=== PATIENT | male | born 1955 | race Caucasian/White ===

== ENCOUNTER 2019-03-19 11:20 | Emergency (ER) | payer OTHER ==
[~2019-03-19] VITALS: Ht 185.4 cm; Wt 150.0 kg
[~2019-03-19 11:20] MED LIST: DILTIAZEM30 MG PO; FOLIC ACID1 M1 PO; GABAPENTIN100 MG PO; LASIX 40 MG TAB40 MG PO; LIBRIUM25 M1 PO; LISINOPRIL2.5 MG PO; METOPROLOL5 MG/5 ML PO; TAB-A-VITE W/1 COMBO PO; THIAMINE HCL100 MG PO; XARELTO20 MG PO
[2019-03-19] MEDS ORDERED: CEPHALEXIN500 M1 PO (11:47)
[2019-03-19] MEDS ORDERED: ISOSORB MONO30 MG PO (11:59)
[2019-03-19 13:30] VITALS: BP 115/83
== END 2019-03-19 13:30 | disposition home or self-care (01) | DRG 605 ==
LOC: ED 11:20
PROC: 0HQKXZZ Repair Right Lower Leg Skin, External Approach (ICD-10-PCS; principal; 2019-03-19)
DX: S81.811A Laceration without foreign body, right lower leg, initial encounter (principal); I11.0 Hypertensive heart disease with heart failure; I50.9 Heart failure, unspecified; I73.9 Peripheral vascular disease, unspecified; G62.9 Polyneuropathy, unspecified; W13.3XXA Fall through floor, initial encounter; Y92.009 Unspecified place in unspecified non-institutional (private) residence as the place of occurrence of the external cause; Z86.73 Personal history of transient ischemic attack (TIA), and cerebral infarction without residual deficits

== ENCOUNTER 2020-01-27 06:42 | Inpatient (IN) | payer OTHER ==
[~2020-01-27] VITALS: Ht 185.4 cm; Wt 118.8 kg
[2020-01-27] VITALS (10 sets, daily range): BP systolic 105–148; BP diastolic 60–91
[~2020-01-27 06:42] MED LIST changes: +CEPHALEXIN500 M1 PO; +ISOSORB MONO30 MG PO
--- NOTE | 2020-01-27 07:00 | NUR ---
RECIEVED CARE OF PATIENT. PT ASSESSED. PT AO X 3. SKIN PINK WARM AND DRY. REPORTS FELT SHORT OF BREATH THIS MORNING. DENIES CHEST PAIN. MEDICATED FOR RAPID HEART RATE AND NAUSEA BY EMS. CHANGED TO GOWN. MONITORS APPLIED
[2020-01-27 07:17] LABS: HEMATOCRIT 37.8 % (39.0-50.0); HEMOGLOBIN 12.5 g/dl (14.0-18.0); IMMATURE GRANULOCYTES 0.6 % (0.0-5.0); MEAN CELL VOLUME 96.7 fL CALC (80.0-100.0); MEAN CORPUSCULAR HGB CONC 33.1 g/dL CAL (32.0-36.0); NEUT# 8.69 thou/uL (1.82-7.42); RED BLOOD COUNT 3.91 mill/uL (4.70-6.10); RED CELL DISTRI WIDTH 13.3 % (11.5-15.5)
--- NOTE | 2020-01-27 07:33 | NUR ---
CARDIZEM DRIP STARTED
[2020-01-27] MEDS ORDERED: METOPROLOL SUC200 MG PO (07:51)
--- NOTE | 2020-01-27 07:56 | NUR ---
PT GIVEN ICE CHIPS AND TISSUE. RESTING ON STRETCHER. NO COMPLAINTS AT THIS TIME
--- NOTE | 2020-01-27 08:04 | NUR ---
CARDIZEM INCREASED TO 15MG/HR FOR HR 121
[2020-01-27 08:14] LABS: ACT PARTIAL THROMBO TIME 24.6 SECONDS (20.0-32.5); INTERNATIONAL NORMALIZED RATIO 1.1 RATIO (0.7-1.3); PROTHROMBIN TIME 11.5 SECONDS (9.0-12.5)
[2020-01-27 08:39] LABS: TSH, 3RD GENERATION 1.03 uIU/mL (0.47 - 4.68)
[2020-01-27 08:48] LABS: ALBUMIN 4.7 g/dL (3.2-5.0); ALKALINE PHOSPHATASE 77 u/l (38-126); BUN 14 mg/dL (8-23); BUN/CREATININE RATIO 16 (12-20 (CALC)); CHLORIDE 103 mmol/l (95-108); CREATININE 0.9 mg/dL (0.7-1.3); GFR > 60 ML/MIN (>=60 (CALC)); GFR FOR AFR.AMER. > 60 ML/MIN (>=60 (CALC)); POTASSIUM 4.2 mmol/l (3.5-5.1); SGOT/AST 56 u/l (19-48); SODIUM 143 mmol/l (137-146); TOTAL PROTEIN 7.6 g/dL (6.3-8.2)
[2020-01-27 08:49] LABS: ANION GAP 25 (6-22 (CALC)); BILIRUBIN, TOTAL 1.1 mg/dL (0.0-1.4); CARBON DIOXIDE 19 mmol/l (22-30)
[2020-01-27 09:00] LABS: MYOGLOBIN 114 ng/mL (0 - 121)
--- NOTE | 2020-01-27 09:23 | NUR ---
SWAB AND BLOOD SPECIMEN COLLECTED
--- NOTE | 2020-01-27 10:11 | NUR ---
ICU UNABLE TO TAKE REPORT AT THIS TIME
--- NOTE | 2020-01-27 10:45 | NUR ---
ICU UNABLE TO TAKE REPORT AT THIS TIME
--- NOTE | 2020-01-27 11:29 | NUR ---
REPORT CALLED TO ICU. LEONID ARIZA
--- NOTE | 2020-01-27 11:46 | NUR ---
PT ADMITTED TO ICU BED 3 FROM ED, PT TRANSPORT VIA STRETCHER WITH IV, PT TRANSFERRED SELF FROM STRETCHER TO BED, SLOW SHAKY GAIT NOTED. PT HAS SHAKY GAIT, WITH TREMORS NOTED AT REST. PT STATES THIS IS NORMAL FOR HIM. PT A&0X3, ABLE TO MAKE NEEDS KNOWN, LOSES THOUGHTS AT TIMES OF SPEAKING. PT STATES CHEST PRESSURE 3/10, NO PAIN AND STATES IT IS ALOT BETTER THEN ON ARRIVAL. AFIB ON TELEMETRY, HR 102. RESPIRATIONS EVEN/UNLABORED, SA02@ 98%RA. LS CLEAR/DIMINISHED. ABDOMEN DISTENDED/HARD, LBM 01/26/20. BLE MID CALF TO FEET DISCOLORED, PT STATES NEUROPATHY, NO HX OF DIABETES. AFEBRILE. PT WITH 18G TO RAC, CARDIZEM AT 15MG/HR, NO S/S OF INFILTRATION OR INFECTION NOTED AT SITE. PT ORIENTED TO UNIT, RM AND CALL LIGHT. CALL LIGHT IN REACH. WILL MONITOR.
--- NOTE | 2020-01-27 11:50 | NUR ---
PT TRANSPORTED VIA STRETCHER. MONITOR IN PLACE TO ICU
--- NOTE | 2020-01-27 12:00 | NUR ---
DIETARY ON UNIT, TRAY SET UP.
--- NOTE | 2020-01-27 13:00 | NUR ---
PT ASSITED TO BSC.
--- NOTE | 2020-01-27 14:00 | NUR ---
LABS DRAWN AT BEDSIDE. PT TOLERATED WELL.
--- NOTE | 2020-01-27 14:30 | NUR ---
PATRICIA TALAMANTES AT [facility] FOR ASSESSMENT AND TO DISCUSS PLAN OF CARE. NEW ORDERS RECIEVED.
--- NOTE | 2020-01-27 15:03 | NUR ---
PT REPORTED TO DRINKING 1 L OF VODKA DAILY, ETOH 213 FROM 7AM. ETOH PROTOCOL INITIATED. PT RESTING IN BED CALL LIGHT IN REACH. AIRBORNE ISOL INTACT.
--- NOTE | 2020-01-27 15:30 | NUR ---
PT ASSISTED TO BSC, UNABLE TO URINATE AT THIS TIME. BLADDER SCAN SHOWS 909ML POST VOID. DR. KIRKLAND NOTIFIED, BROCK PLACEMENT ORDERED FOR RETENTION. BROCK PLACED USING STERILE TECHNIQUE, 10ML BALLOON INFLATED WITH 1000ML TEA COLORED URINE IMMEDIATLY RETURNED.
--- NOTE | 2020-01-27 16:30 | NUR ---
PT RESTING IN BED, WATCHING TV. TREMORS AT REST CONTINUE. PT OFFERS NO COMPLAINTS AT THIS TIME. DENIES VISUAL OR AUDIO HALLUCINATIONS NOT SEIZURE ACTIVITY NOTED. CALL LIGHT IN REACH. WILL MONITOR.
[2020-01-27 17:25] LABS: URINE BILIRUBIN - DIPSTICK NEGATIVE (NEGATIVE); URINE BLOOD DIPSTICK NEGATIVE (NEGATIVE); URINE CLARITY CLEAR; URINE COLOR YELLOW; URINE GLUCOSE - DIPSTICK NEGATIVE (NEGATIVE); URINE KETONE 15 mg/dL (NEGATIVE); URINE LEUK ESTERASE NEGATIVE (Negative); URINE NITRITE - DIPSTICK NEGATIVE (Negative); URINE PH 5.5 (4.5-8.0); URINE PROTEIN - DIPSTICK 30 mg/dL (NEG-TRACE); URINE SPECIFIC GRAVITY >=1.030; URINE UROBILINOGEN - DIPSTICK 0.2 E.U./dL (0.2)
--- NOTE | 2020-01-27 17:30 | NUR ---
PT ASSISTED TO BSC, THEN BACK TO BED. SHAKY GAIT.
[2020-01-27 17:49] LABS: URINE AMORPH SEDIMENT FEW hpf (NONE-FER); URINE RBC 0-2 RBC/hpf (0-5); URINE WBC 0-2 WBC/hpf (0-5)
--- NOTE | 2020-01-27 18:32 | NUR ---
PT RESTING IN BED, EYES CLOSED. BROCK REMAINS PATENT, DRAINING TO BSD VIA GRAVITY. CALL LIGHT IN REACH.
--- NOTE | 2020-01-27 18:51 | NUR ---
ASSISTED TO BSC, SCANT BM , THEN BACK TO BED. CALL LIGHT IN REACH. WILL MONITOR.
--- NOTE | 2020-01-27 20:00 | NUR ---
ASLEEP ON ROUNDS. RESP EVEN AND UNLABORED. AFIB ON MONITOR, HR 80'S. ASSESSMENT DEFERRED.
--- NOTE | 2020-01-27 20:45 | NUR ---
PATIENT RESTING IN BED, WATCHING TV. DENIES ANY PAIN OR DISCOMFORTS. RESP NON-LABORED. LUNGS CLEAR, DIMINISHED IN BILATERAL BASES. 1+ EDEMA OF BLE WITH PIGMENTATION CHANGES NOTED AND DRY, SCALY SKIN. PERIPHERAL PULSES WEAKLY PALPABLE. IV IN LAC WITH BANANA BAG INFUSING AT 100 ML/HR. CONTINUES AFIB ON MONITOR. TREMORS NOTED OF BOTH HANDS/ARMS. DISCUSSED PLAN OF CARE. PATIENT VERBALIZES UNDERSTANDING. DENIES NEEDS AT THIS TIME. CALL ZALDIVAR IN REACH. REINFORCED USE OF CALL ZALDIVAR FOR ANY ASSISTANCE.
--- NOTE | 2020-01-27 22:00 | NUR ---
RESTING WITH EYES CLOSED. RESP NON-LABORED. AFIB.
[2020-01-28] VITALS (13 sets, daily range): BP systolic 120–158; BP diastolic 80–93
--- NOTE | 2020-01-28 00:07 | NUR ---
SLEEPING ON ROUNDS. RESP NON-LABORED. AFIB ON MONITOR.
--- NOTE | 2020-01-28 01:00 | NUR ---
UP TO BSC WITH ASSIST, HAD LARGE LIQUID BROWN STOOL.
--- NOTE | 2020-01-28 01:10 | NUR ---
PATIENT STATES FEELS ANXIOUS. INCREASE IN TREMORS NOTED. ATIVAN 2 MG SLOW IVP GIVEN ORDERED FOR WITHDRAWAL SYMPTOMS.
--- NOTE | 2020-01-28 02:15 | NUR ---
ZURI FOR SHORT INTERVALS. PATIENT HAS BEEN COOPERATIVE. NO CHANGES TO REPORY.
--- NOTE | 2020-01-28 04:50 | NUR ---
BLOOD DRAWN FOR AM LABS ORDERED.
[2020-01-28 05:44] LABS: ALKALINE PHOSPHATASE 69 u/l (38-126); BUN 13 mg/dL (8-23); BUN/CREATININE RATIO 18 (12-20 (CALC)); CHLORIDE 102 mmol/l (95-108); CREATININE 0.7 mg/dL (0.7-1.3); GFR > 60 ML/MIN (>=60 (CALC)); GFR FOR AFR.AMER. > 60 ML/MIN (>=60 (CALC)); SGOT/AST 46 u/l (19-48); SODIUM 136 mmol/l (137-146); TOTAL PROTEIN 6.8 g/dL (6.3-8.2)
[2020-01-28 05:51] LABS: CHOLESTEROL HDL RATIO 2.9 (<4.4 (CALC)); MAGNESIUM 1.4 mg/dL (1.6-2.3)
[2020-01-28 05:55] LABS: ANION GAP 14 (6-22 (CALC)); CARBON DIOXIDE 24 mmol/l (22-30)
--- NOTE | 2020-01-28 06:45 | NUR ---
RECIEVED REPORT FROM ANNITA DOWNS. ASSUMED PT CARE.
--- NOTE | 2020-01-28 07:15 | NUR ---
PT RESTING IN BED, A&0X3, ABLE TO MAKLE NEEDS KNOWN, SOME CONFUSION PROCESSING THOUGHT TO VERBALIZE. PT WITH SEVERE TREMORS NOTED AT REST AND INCREASED WITH CONCENTRATED MOVEMENTS. PT DENIES VISUAL OR AUDITORY HALLUCINATIONS, NO SEIZURE ACTIVITY. BROCK REMAIN PATENT, DRAINING TO BSC VIA GRAVITY, DARK TAVARES URINE NOTED. 18G TO LAC INTACT, FLUSHED WITHOUT DIFFICULTY. AIR ISOLATION MAINTAINED. CALL LIGHT IN REACH. WILL MONITOR.
--- NOTE | 2020-01-28 08:00 | NUR ---
PT ASSISTED TO BSC, SMALL LIQUID STOOL
--- NOTE | 2020-01-28 09:00 | NUR ---
PT ASSISTED WITH REMAINDER OF MEAL, SEVERE TREMORS CONTINUED. PT THEN ASSISTED TO BSC, SMALL LIQUID STOOL. GOOD PERICARE, LINEN CHANGE COMPLETED. CALL LIGHT IN REACH. WILL MONITOR.
--- NOTE | 2020-01-28 09:53 | NUR ---
DR. KIRKLAND AT BEDSIDE FOR ASSESSMENT AND TO DISCUSS PLAN OF CARE. NEW ORDERS RECIEVED. CALL LIGHT IN REACH. WILL MONITOR.
--- NOTE | 2020-01-28 11:56 | NUR ---
PT SITTING UP IN BED, EATING LUNCH. TREMORS REMAIN, NO S/S OF AUDIO/VISUAL HALLUCINATIONS NOTED. NO S/S OF SEIZURE ACTIVITY.
--- NOTE | 2020-01-28 14:00 | NUR ---
PT RESTING IN BED WITH EYES CLOSED. NO S/S OF DISTRESS AT THIS TIME. CALL LIGHT IN REACH.
--- NOTE | 2020-01-28 15:53 | NUR ---
PT RESTING IN BED, WATCHING TV. OFFERS NO COMPLAINTS AT THIS TIME. CALL LIGHT IN REACH.
--- NOTE | 2020-01-28 18:00 | NUR ---
PT CALLED, STATED PT WAS NOT GOING TO BE ABLE TO RETURN TO HOME. SHE WAS VERY DISTRESS ABOUT PT MEDICAL CONDITION AND CURRENT UNABILITY TO REMAIN SOBER. STATED PT HAS BEEN HAVING INCRESINGLY HARD TIME WITH [employer] AND IS SUPPOSED TO BE GETTING AN APPT AT [place] TO DO A WORK UP FOR [employer] BUT HAS BEEN UNABLE TO GET APPT SCHEDULED. REFERRED PT TO CM.
--- NOTE | 2020-01-28 19:50 | NUR ---
PATIENT AWAKE ON ROUNDS. RESTING IN BED WATCHING TV. DENIES PAIN OR DISCOMFORTS. RESP NON-LABORED. LUNGS CLEAR THROUGHOUT. RA O2 SAT 98% SHIFT ASSESSMENT COMPLETED. LAC SALINE LOCK INTACT, SIT EBENIGN. HONEY BLENDER SHOWS AFIB. DISCUSSED PLAN OF CARE, PATIENT VERBALIZES UNDERSTANDING. DENIES NEEDS AT THIS TIME. CALL ZALDIVAR IN REACH.
--- NOTE | 2020-01-28 22:00 | NUR ---
WATCHING TV. NO COMPLAINTS VOICED. VSS.
[2020-01-29] VITALS (18 sets, daily range): BP systolic 118–160; BP diastolic 75–113
--- NOTE | 2020-01-29 00:03 | NUR ---
RESTING WITH EYES CLOSED. RESP NON-LABORED. VSS. AFIB ON MONITOR, HR 70'S.
--- NOTE | 2020-01-29 01:30 | NUR ---
MEDICATED WITH LIBRIUM 25 MG PO ORDERED FOR TREMORS, C/O BEING ANXIOUS.
--- NOTE | 2020-01-29 04:00 | NUR ---
PATIENT HAS SLEPT ON AND OFF. CALM AND COOPERATIVE WHEN AWAKE. VSS. AFIB ON MONITOR.
[2020-01-29 05:12] LABS: ANION GAP 8 (6-22 (CALC)); BUN 12 mg/dL (8-23); BUN/CREATININE RATIO 16 (12-20 (CALC)); CHLORIDE 98 mmol/l (95-108); CREATININE 0.7 mg/dL (0.7-1.3); GFR > 60 ML/MIN (>=60 (CALC)); GFR FOR AFR.AMER. > 60 ML/MIN (>=60 (CALC)); MAGNESIUM 1.7 mg/dL (1.6-2.3); POTASSIUM 3.4 mmol/l (3.5-5.1); SODIUM 134 mmol/l (137-146)
[2020-01-29 05:16] LABS: CARBON DIOXIDE 31 mmol/l (22-30)
--- NOTE | 2020-01-29 06:07 | NUR ---
PATIENT RESTING WITH EYES CLOSED. RESP NON-LABORED. NO SEIZURE ACTIVITY OR HALLUCINATIONS DURING THE NIGHT. TREMORS PERSIST.
--- NOTE | 2020-01-29 07:15 | NUR ---
REPORT RECEIVED FROM OUTGOING NURSE, VSS. WILL CONTINUE TO MONITOR.
--- NOTE | 2020-01-29 08:00 | NUR ---
PT RESTING IN BED, ALL VSS AT THIS TIME. WILL CONTINUE TO MONITOR.
--- NOTE | 2020-01-29 10:00 | NUR ---
PT IN BED RESTING WITH EYES CLOSED, ALL VSS AT THIS TIME.
--- NOTE | 2020-01-29 12:00 | NUR ---
PT RESTING IN BED AT THIS TIME, NO CHANGE IN VS. PT BATHED AND LINENS CHANGED.
--- NOTE | 2020-01-29 14:00 | NUR ---
PT VSS, CASE MANAGEMENT IN TO SEE PT REGARDING LIVING SITUATION.
--- NOTE | 2020-01-29 14:00 | NUR ---
PT RESTING IN BED, ALL VSS.
--- NOTE | 2020-01-29 16:00 | NUR ---
PHYSICAL THEREAPY IN TO EVALUATE PT AT THIS TIME.
--- NOTE | 2020-01-29 18:00 | NUR ---
PT EATING DINNER IN BED, ALL VSS AT THIS TIME.
--- NOTE | 2020-01-29 19:00 | NUR ---
REPORT FROM ANNITA WASHBURN. ASSUMED PT. CARE.
--- NOTE | 2020-01-29 19:30 | NUR ---
PT. FOUND SITTING UP IN BED WATCHING TELEVISION. SKIN WARM AND DRY. AFEBRILE. RESPS EVEN AND UNLABORED. ORIENTED X 3. NEWTON. PT. WITH NOTED TREMOR AND PILL-ROLLING MOTION TO LT. HAND. REPORT MILD CHEST PRESSURE THAT HE REPORTS HAVING HAD FOR QUITE SOME TIME. BOWEL SOUNDS ACTIVE. AKUA. IRREGULAR RATE AND RHYTHM , A-FIB, RATE CONTROLLED. VSS. CALL LIGHT WITHIN REACH. RADIAL PUSLES INTACT. 1+ LOWER EXT EDEMA, PEDAL PULSES WEAK. CALL LIGHT WITHIN REACH. WILL CONTINUE TO CLOSELY MONITOR.
--- NOTE | 2020-01-29 20:12 | NUR ---
PT. ASSISTED WITH LOG-IN ON HOSPITAL WIFI. DENIES OTHER COMPLAINTS OR NEEDS AT THIS TIME. REMAINS STABLE, TREMULOUS.
--- NOTE | 2020-01-29 22:15 | NUR ---
PT. RESTING IN BED IN NO DISTRESS. PT. MEDICATED ORDERED. WILL CONTINUE TO CLOSELY MONITOR FOR SIGNS OF WITHDRAWL AND NEED FOR MEDICATION ADMINISTRATION. CALL LIGHT REMAINS WITHIN REACH.
[2020-01-30] VITALS (9 sets, daily range): BP systolic 107–154; BP diastolic 64–102
--- NOTE | 2020-01-30 00:08 | NUR ---
PT. RESTING IN BED WITH EYES CLOSED IN NO DISTRESS. INTERMITTENT SNORING RESPIRATIONS NOTED. BP/HR STABLE. A-FIB REMIANS RATE CONTROLLED. AFEBRILE. PT. VOICES NO COMPLAINTS OR NEEDS. CALL LIGHT REMAINS WITHIN REACH.
--- NOTE | 2020-01-30 02:05 | NUR ---
BP/HR REMAINS STABLE. CALL LIGHT REMAINS WITHIN REACH. CONTINUES WIHT INTERMITTENT SNORING RESPIRATIONS. NO DISTRESS NOTED. WILL CONTINUE TO MONITOR.
--- NOTE | 2020-01-30 04:02 | NUR ---
PT. REMAINS AFEBRILE. AWAKE, ALERT, ORIENTED X 3. WATCHING TELEVISION IN NO DISTRESS. RESPS REMAIN EVEN AND UNLABORED. RHYTHM REMAINS RATE CONTROLLED A-FIB. CALL LIGHT WITHIN REACH.
--- NOTE | 2020-01-30 05:02 | NUR ---
PT. MEDICATED PER PHYSICIAN ORDERS. BROCK EMPTIED OF APPROX 1100 CC CLEAR YELLOW URINE. LIGHTS DIMMED FOR COMFORT. PT. DENIES OTHER COMPLAINTS OR NEEDS
--- NOTE | 2020-01-30 06:10 | NUR ---
IV ZOSYN INFUSING ORDERED. NO REACTIONS NOTED. PT. RESTING ON RT. SIDE WITH EYES CLOSED AND IN NO DISTRESS. WILL CONTINUE TO MONITOR.
--- NOTE | 2020-01-30 07:30 | NUR ---
REPORT RECEIVED FROM OUTGOING NURSE, PT RESTING IN BED. ALL VSS, WILL CONTINUE TO MONITOR.
--- NOTE | 2020-01-30 08:00 | NUR ---
PT RESTING IN BED, ALERT AND ORIENTEDX3. DENIES PAIN AT THIS TIME, CONTROLLED AFIB ON THE MONITOR. BP ELEVATED, WITHIN PTS RANGE HISTORY. TEMP NORMAL, PUPILS EQUAL ROUND AND REACTIVE. ANSWERS ALL QUESTIONS APPROPRIATELY. PT AGREES TO REHAB, WAITING ON CASE MANAGEMENT FOR PLACEMENT.
--- NOTE | 2020-01-30 09:00 | NUR ---
PT AMBULATED TO BATHROOM FO BM. PT HAD MODERATE BM. PT AMBULATED BACK TO BED. PT NOTED TO HAVE STEADY GAIT WITH WALKER.
--- NOTE | 2020-01-30 11:30 | NUR ---
PT IN TO SEE PT AT THIS TIME.
--- NOTE | 2020-01-30 12:00 | NUR ---
PT note Patient is seen for gait and transfer training. He requires minimal VC to stand and understands slow positoin change. He was able to ambulate 60 feet with min mod assist of 1 and vitals stable hollie FWW. He is limited by dyspnea. He is encouraged to stand at least 6 x daily. he expressed fear that his legs would swell but I told him to lmit standing time but make sure he relieved pressure off the buttocks and continued to wortk on his function. His Am pac score is 14 and he is a good candidate for home health
--- NOTE | 2020-01-30 14:00 | NUR ---
PT RESTING IN BED WATCHING TV, DENIES PAIN OR DISCOMFORT. DENIES ANXIETY, ALERT AND ORIENTED, ALL VSS. WILL CONTINUE TO MONITOR.
--- NOTE | 2020-01-30 15:50 | NUR ---
PT RESTING IN BED ALL VSS AT THIS TIME TRANSFER ORDERS RECEIVED FROM DR KIRKLAND.
--- NOTE | 2020-01-30 17:00 | NUR ---
PT REPORT CALLED TO [facility] PAYABLE ASSISTANT FLOOR. ALERT AND ORIENTEDX3, ALL VSS. TRANSFERED VIA BED WITH RN.
--- NOTE | 2020-01-30 17:10 | NUR ---
[facility]
--- NOTE | 2020-01-30 19:00 | NUR ---
REPORT RECEIVED FROM ANNITA RAY. PT RESTING IN BED, NO S/S OF DISTRESS AT THIS TIME. SAFETY PRECAUTIONS IN PLACE. WILL CONTINUE TO MONITOR.
--- NOTE | 2020-01-30 20:25 | NUR ---
PT RESTING IN BED, ALERT AND ORIENTED. RESPIRATIONS EVEN AND UNLABORED, LUNGS SOUND DIMINISHED. PEDAL PULSES WEAK. PT DENIES ANY PAIN AT THIS TIME. PT HAVING TREMORS AND FEELING ANIXOUS. PT TO BE MEDICATED PER EMAR ORDERS. SAFETY PRECAUTIONS IN PLACE. WILL CONTINUE TO MONITOR.
--- NOTE | 2020-01-30 21:52 | NUR ---
REPORT RECEIVED FROM ANNITA RAY. PT RESTING IN BED, NO S/S OF DISTRESS AT THIS TIME. SAFETY PRECAUTIONS IN PLACE. WILL CONTINUE TO MONITOR.
[2020-01-31 00:12] VITALS: BP 131/84
--- NOTE | 2020-01-31 00:12 | NUR ---
PT RESTING IN BED. NO S/S OF DISTRESS AT THIS TIME. TELE IN PLACE. SAFETY PRECAUTIONS IN PLACE. WILL CONTINEU TO MONITOR.
[2020-01-31 04:15] VITALS: BP 130/73
--- NOTE | 2020-01-31 04:26 | NUR ---
PT RESTING IN BED. NO S/S OF DISTRESS AT THIS TIME. SAFETY PRECAUTIONS IN PLACE. WILL CONTINEU TO MONITOR.
[2020-01-31 05:19] LABS: HEMATOCRIT 39.7 % (39.0-50.0); HEMOGLOBIN 13.1 g/dl (14.0-18.0); MEAN CELL VOLUME 97.5 fL CALC (80.0-100.0); MEAN CORPUSCULAR HGB 32.2 pG CALC (26.0-32.0); RED BLOOD COUNT 4.07 mill/uL (4.70-6.10); RED CELL DISTRI WIDTH 12.7 % (11.5-15.5)
[2020-01-31 05:26] LABS: ALBUMIN 3.8 g/dL (3.2-5.0); ALKALINE PHOSPHATASE 63 u/l (38-126); ANION GAP 12 (6-22 (CALC)); BUN 14 mg/dL (8-23); BUN/CREATININE RATIO 17 (12-20 (CALC)); CARBON DIOXIDE 30 mmol/l (22-30); CHLORIDE 97 mmol/l (95-108); CREATININE 0.8 mg/dL (0.7-1.3); GFR > 60 ML/MIN (>=60 (CALC)); GFR FOR AFR.AMER. > 60 ML/MIN (>=60 (CALC)); POTASSIUM 3.7 mmol/l (3.5-5.1); SGOT/AST 27 u/l (19-48); SODIUM 136 mmol/l (137-146); TOTAL PROTEIN 6.6 g/dL (6.3-8.2)
[2020-01-31 05:48] LABS: BILIRUBIN, TOTAL 0.7 mg/dL (0.0-1.4)
[2020-01-31 07:11] VITALS: BP 116/82
--- NOTE | 2020-01-31 07:11 | NUR ---
PT RESTING IN BED, NO SIGNS OF DISTRESS NOTED, RESP EVEN AND UNLABORED. PT ALERT AND ORIENTED X3. DISCUSSED POC, VITALS OBTAINED, ASSESSMENT COMPLETED. CALL LIGHT IN REACH,CONTINUE TO MONITOR.
--- NOTE | 2020-01-31 08:34 | NUR ---
PT AMBULATED TO SHOWER WITH STEADY GAIT USING WALKER, HIGHWAY TRAFFIC CONTROL TECHNICIAN AND SEWING MACHINES SALESPERSON AT BEDSIDE, INSTUCTED PT TO TO PULL CORD FOR ASSISTANCE. CONTINUE TO MONITOR.
--- NOTE | 2020-01-31 10:27 | NUR ---
PT RESTING IN BED WATCHING TV,NO SIGNS OF DISTRESS NOTED, RESP EVEN AND UNLABORED. CALL LIGHT IN REACH,CONTINUE TO MONITOR.
--- NOTE | 2020-01-31 14:41 | NUR ---
PT MEDICATED PER MAR, NO SIGNS OF DISTRESS NOTED, RESP EVEN AND UNLABORED. CALL LIGHT IN REACH,CONTINUE TO MONITOR.
[2020-01-31 15:00] VITALS: BP 103/78
--- NOTE | 2020-01-31 19:00 | NUR ---
REPORT RECEIVED FROM MOE KEBEDE. PT RESTING IN BED. NO S/S OF DISTRESS AT THIS TIME. SAFETY PRECAUTIONS IN PLACE. WILL CONTINUE TO MONITOR.
[2020-01-31 19:31] VITALS: BP 122/83
--- NOTE | 2020-01-31 20:40 | NUR ---
PT RESTING IN BED ALERT AND ORIENTED. RESPIRATIONS EVEN AND UNLABORED ON RA. LUNGS SOUND CLEAR. PEDAL PULSES WEAK. PT DENIES ANY PAIN OR DISCOMFORT AT THIS TIME. TELE IN PLACE. CALL ZALDIVAR WITHIN REACH. WILL CONTINUE TO MONITOR.
--- NOTE | 2020-01-31 23:36 | NUR ---
PT RESTING IN BED. ALERT AND ORIENTED. NO S/S OF DISTRESS AT THIS TIME. SAFETY PRECAUTIONS IN PLACE. WILL CONTINUE TO MONITOR.
[2020-02-01 00:09] VITALS: BP 121/80
--- NOTE | 2020-02-01 04:14 | NUR ---
PT RESTING IN BED, NO S/S OF DISTRESS AT THIS TIME. SAFETY PRECAUTIONS IN PLACE. WILL CONTINUE TO MONITOR.
[2020-02-01 04:18] VITALS: BP 116/82
[2020-02-01 07:57] VITALS: BP 108/82
--- NOTE | 2020-02-01 07:57 | NUR ---
PT SITTING IN BED EATING BREAKFAST, PT MORE PLEASANT THIS AM, JOKING WITH INSULATION WORKER APPRENTICE. DISCUSSED POC, NO SIGNS OF DISTRESS NOTED, RESP EVEN AND UNLABORED. ASSESSMENT COMPLETED, IV PATENT, VITALS OBTAINED, CALL LIGHT IN REACH,CONTINUE TO MONITOR.
[2020-02-01 10:55] VITALS: BP 106/79
--- NOTE | 2020-02-01 12:00 | NUR ---
PT SITTING IN BED EATING LUNCH, NO SIGNS OF DISTRESS NOTED, RESP EVEN AND UNLABORED. CALL LIGHT IN REACH,CONTINUE TO MONITOR.
[2020-02-01 15:21] VITALS: BP 113/68
--- NOTE | 2020-02-01 17:28 | NUR ---
PT SITTING IN BED EATING DINNER, MEDICATED PER DEC. PT VOICES NO NEEDS OR COMPLAINTS AT THIS TIME, CALL LIGHT IN REACH,CONTINUE TO MONITOR.
[2020-02-01 18:46] VITALS: BP 117/78
--- NOTE | 2020-02-01 19:00 | NUR ---
REPORT RECEIVED FROM MOE KEBEDE. PT RESTING IN BED, NO S/S OF DISTRESS AT THIS TIME. SAFETY PRECAUTIONS IN PLACE. WILL CONTINUE TO MONITOR.
--- NOTE | 2020-02-01 20:15 | NUR ---
PT RESTING IN BED, ALERT AND ORIENTED. TREMORS NOTED AT THIS TIME. RESPIRATIONS EVEN AND UNLABORED ON RA. LUNGS SOUND CLEAR/DIMINISHED. PEDAL PULSES WEAK. PT DENIES ANY PAIN OR DISCOMFORT AT THIS TIME. SAFETY PRECAUTIONS IN PLACE. WILL CONTINUE TO MONITOR.
--- NOTE | 2020-02-01 23:34 | NUR ---
PT RESTING IN BED NO S/S OF DISTRESS AT THIS TIME. SAFETY PRECAUTIONS IN PLACE. WILL CONTINUE TO MONITOR.
[2020-02-02 00:33] VITALS: BP 114/79
--- NOTE | 2020-02-02 04:38 | NUR ---
PT RESTING IN BED, NO S/S OF DISTRESS AT THIS TIME. TELE IN PLACE. WILL CONTINUE TO MONITOR.
[2020-02-02 05:08] VITALS: BP 110/87
--- NOTE | 2020-02-02 07:43 | NUR ---
RECIEVED REPORT FROM ANNITA MILLS. PT RESTING IN SEMI FOLWERS POSTION WATCHING TV.INTRODUCED SELF TO PT. PT REPORTS HAVING A 2/10 PRESSURE IN HIS CHEST. PT REPORTS HAVING THIS PRESSURE FOR 5 DAYS. VITALS ARE STABLE.BLOOD PRESSURE 118/73, HR 72, T96.8, AND O2 96%. TELE MONITIOR IN PLACE READING A FIB. BREATH SOUNDS ARE CLEAR. HEART SOUNDS IRREGULAR. BOWEL SOUNDS ACTIVE IN ALL 4 QUADRANTS. STRONG RADIAL AND PEDAL PULSES. SOME EDEMA IN LOWER EXTREMITIES. GENERAL DRYNESS OF SKIN TO LOWER EXTREMITIES. IV SITE APPREARS TO BE HEALTHY. BED IN LOWEST POSITION WITH CALL LIGHT IN REACH. WILL CONTINUE TO [facility].
[2020-02-02 08:08] VITALS: BP 118/73
[2020-02-02] MEDS ORDERED: FOLIC ACID1 M1 PO (09:38)
[2020-02-02] MEDS ORDERED: VITAMIN B-1100 M1 PO (09:38)
--- NOTE | 2020-02-02 09:43 | NUR ---
DR. KIRKLAND AT BED SIDE DISCUSSING PLANNING FOR REHAB. PT VERBALIZES UNDERSTANDING.
--- NOTE | 2020-02-02 10:17 | NUR ---
BROCK CATHATER REMOVED PER MD ORDER. PT TOLERATED WELL. ALL SAFETY PERCAUTIONS IN PLACE. WILL CONTINUE TO MONITOR.
--- NOTE | 2020-02-02 11:28 | NUR ---
PHYSICAL THERARY WORKING WITH PT. WILL CONTINUE TO MONITOR.
[2020-02-02 11:44] VITALS: BP 115/89
--- NOTE | 2020-02-02 12:00 | NUR ---
PT SITTING UP IN BED WATCHING TV. PT WAITING ON DISCHARGE INSTRUCTIONS. PT DENIES OF ANY PAIN OR DISCOMFORTS.ALL SAFETY PERCAUTIONS IN PLACE. WILL CONTINUE TO MONITOR.
--- NOTE | 2020-02-02 13:35 | NUR ---
PT note Robert is in good spirits today. His pill rolling and pelvic thrust are defintely improved and his overall affect is improved as well. He stands OOB with min assist of 1. He does require min assist to ambulate on a level surface with slight LOB backwards. He will need additional gait training to manage multiple surfaces and stairs independently. Robert expresses interest in rehab and is a good candidate for additional therapy. He also expresses interest in an inpatient program to help him handle his ETOH addiction.
--- NOTE | 2020-02-02 13:53 | NUR ---
REVIEWED DISCHARGE DISTRUCTIONS, EDUCATION AND PRESCRIBED MEDS WITH PT. PT VERBALIZED UNDERSTANDING. IV REMOVED. CATHATER STILL INTACT. PT TOLERATED WELL. PT WAITING ON FOR TRANSPORTATION. SAFETY PERCAUTIONS STILL IN PLACE. WILL CONTINUE TO MONITOR.
--- NOTE | 2020-02-02 14:34 | NUR ---
Discharge instructions given. Patient verbalizes understanding of same. Discharged in stable condition via Wheelchair to Home with spouse. All belongings sent with pt. PT DISCHARGED IN STABLE CONDITION VIA WHEELCHAIR. ACCOMPANIED BY Braxton CAMPOS LPN.
== END 2020-02-02 14:26 | disposition home health service (06) | DRG 309 ==
LOC: EDPENDDISTM → EDPENDDISDT → ED 06:42 → ED-I 08:50 → ED 09:09 → ICU 09:10 → ED-I 09:10 → ICU 10:13 → MS2 01-30 15:15
PROVIDERS: Emergency Medicine; ADMIT Internal Medicine; ATTEND Internal Medicine
DX: I48.91 Unspecified atrial fibrillation (principal); F10.231 Alcohol dependence with withdrawal delirium; F10.229 Alcohol dependence with intoxication, unspecified; I10 Essential (primary) hypertension; I73.9 Peripheral vascular disease, unspecified; G62.9 Polyneuropathy, unspecified; G25.2 Other specified forms of tremor; R26.81 Unsteadiness on feet; T14.8XXA Other injury of unspecified body region, initial encounter; W19.XXXA Unspecified fall, initial encounter; Y90.7 Blood alcohol level of 200-239 mg/100 ml; Z86.73 Personal history of transient ischemic attack (TIA), and cerebral infarction without residual deficits; Z91.81 History of falling; Z20.828 Contact with and (suspected) exposure to other viral communicable diseases
CPT/HCPCS: G0378; J2060; J3475

== ENCOUNTER 2020-09-06 06:41 | Observation (INO) | payer OTHER ==
[~2020-09-06] VITALS: Ht 185.4 cm; Wt 111.1 kg
[~2020-09-06 06:41] MED LIST changes: +METOPROLOL SUC200 MG PO; +VITAMIN B-1100 M1 PO
--- NOTE | 2020-09-06 06:50 | NUR ---
PT ROOM VIA W/C ASSISTED TO BED. EKG COMPLETED. TRIAGED AT BEDSIDE.
--- NOTE | 2020-09-06 07:20 | NUR ---
MEDICATED WITH NITRO 0.4MG SL FOR C/O 4/10 CHEST PAIN.
--- NOTE | 2020-09-06 07:20 | NUR ---
COVID SWAB COLLECTED, ISOLATION PRECAUTIONS INITIATED.
[2020-09-06] MEDS ORDERED: AMMONIUM LAC122 EX (07:35)
[2020-09-06] MEDS ORDERED: ASPIRIN81 MG PO (07:41)
[2020-09-06] MEDS ORDERED: ATORVASTATIN CA80 MG PO (07:42)
[2020-09-06] MEDS ORDERED: DOCUPRENE100 MG PO (07:44)
[2020-09-06] MEDS ORDERED: SM ALLERGY50 MCG/ACT (07:45)
[2020-09-06 07:53] LABS: HEMATOCRIT 36.8 % (39.0-50.0); HEMOGLOBIN 11.8 g/dl (14.0-18.0); IMMATURE GRANULOCYTES 0.3 % (0.0-5.0); MEAN CELL VOLUME 97.4 fL CALC (80.0-100.0); MEAN CORPUSCULAR HGB 31.2 pG CALC (26.0-32.0); MEAN CORPUSCULAR HGB CONC 32.1 g/dL CAL (32.0-36.0); NEUT# 7.03 thou/uL (1.82-7.42); RED BLOOD COUNT 3.78 mill/uL (4.70-6.10); RED CELL DISTRI WIDTH 14.2 % (11.5-15.5)
[2020-09-06 08:16] LABS: ANION GAP 12 (6-22 (CALC)); BUN 20 mg/dL (8-23); BUN/CREATININE RATIO 21 (12-20 (CALC)); CARBON DIOXIDE 26 mmol/l (22-30); CHLORIDE 103 mmol/l (95-108); GFR > 60 ML/MIN (>=60 (CALC)); GFR FOR AFR.AMER. > 60 ML/MIN (>=60 (CALC)); POTASSIUM 4.1 mmol/l (3.5-5.1); SODIUM 137 mmol/l (137-146)
--- NOTE | 2020-09-06 08:30 | NUR ---
PT RESTING IN SEMI FOWLERS, RESPS EVEN AND UNLABORED ON ROOM AIR. DENIES NAUSEA, AT BEDSIDE.
--- NOTE | 2020-09-06 09:19 | NUR ---
MD AT BEDSIDE TO DISCUSS RESULTS AND POC.
--- NOTE | 2020-09-06 10:20 | NUR ---
RESTING WITH EYES CLOSED, AWAKENS EASILY. AT BEDSIDE. DENIES NEEDS AT THIS TIME.
--- NOTE | 2020-09-06 11:35 | NUR ---
BP 84/45 HR 112, PT PLACED IN [place] POSITION, DENIES DIZZINESS OR SOB. CALL LIGHT WITHIN REACH.
--- NOTE | 2020-09-06 13:33 | NUR ---
REPORT CALLED TO NANCY ROSA.
--- NOTE | 2020-09-06 14:16 | NUR ---
PT ARRIVED TO MED/SURG ROOM 278 IN STABLE CONDITION VIA WHEELCHAIR ACCOMPANIED BY ANNITA HAGER;PT AMBULATED TO BEDSIDE WITH A STEADY GAIT;WT AND VS OBTAINED BY HAROLDO SPANGLER;PT A&O X3,ORIENTED TO ROOM AND CALL LIGHT SYSTEM;PT REPORTS MID STERNAL CHEST PAIN/PRESSURE AND SOB WITH EXERTION;PT REPORTS MINIMAL PAIN AT THIS TIME,PAIN SCALE AND REPORTING EDUCATED;RESPIRATIONS EVEN AND UNLABORED ON RA,DIMINISHED LUNG SOUNDS NOTED;ABDOMEN DISTENDED/SOFT ON PALPATION AND ACTIVE IN ALL 4 QUADRANTS,LAST BM 09/06/20;WEAK PEDAL PULSES;SKIN INTACT;TELE MONITORING IN PLACE;#20G TO RAC FLUSHED AND PATENT,SITE APPEARS HEALTHY;FALL AND ALLERGY BAND NOTED TO LUE;PT DENIES ANY ADDITIONAL NEEDS AT THIS TIME AND IS ENCOURAGED TO CALL FOR ASSISTANCE IF NEEDED;FALL PRECAUTIONS IN PLACE WITH BED IN THE LOWEST POSITION AND CALL LIGHT IN REACH;WILL CONTINUE TO MONITOR
--- NOTE | 2020-09-06 14:18 | NUR ---
TO ROOM 278 VIA WHEELCHAIR, TELE MONITOR IN PLACE.
[2020-09-06 14:34] VITALS: BP 95/69
[2020-09-06] MEDS ORDERED: NEURONTIN600 MG PO (15:07)
--- NOTE | 2020-09-06 17:00 | NUR ---
PT RESTING IN SEMI FOWLERS POSITION;RESPIRATIONS EVEN AND UNLABORED ON RA;PT DENIES ANY CURRENT PAIN OR NEEDS;TELE MONITORING IN PLACE;IV SITE PATENT;ASSESSMENT REMAINS UNCHANGED AT THIS TIME;ENCOURAGED TO CALL FOR ASSISTANCE IF NEEDED;FALL PRECAUTIONS IN PLACE WITH BED IN THE LOWEST POSITION AND CALL LIGHT IN REACH;WILL CONTINUE TO MONITOR
--- NOTE | 2020-09-06 19:00 | NUR ---
REPORT RECEIVED FROM MOE CRUZ. PT RESTING IN BED. NO S/S OF DISTRESS AT THIS TIME. SAFETY PRECAUTIONS IN PLACE. WILL CONTINUE TO MONITOR.
[2020-09-06 20:00] VITALS: BP 106/74
--- NOTE | 2020-09-06 20:15 | NUR ---
PT RESTING IN BED, ALERT AND ORIENTED. RESPIRATIONS ARE EVEN AND UNLABORED ON RA. LUNGS SOUND CLEAR. PEDAL PULSES ARE STRONG. SAFETY PRECAUTIONS IN PLACE. WILL CONTINUE TO MONITOR.
--- NOTE | 2020-09-07 00:20 | NUR ---
PT HEART RATE MD EMILIE NOTIFIED, NEW ORDERS OBTAINED AND TO BE CARRIED OUT.
[2020-09-07 04:00] VITALS: BP 101/71
--- NOTE | 2020-09-07 04:36 | NUR ---
PT RESTING IN BED, NO S/S OF DISTRESS AT THIS TIME. SAFETY PRECAUTIONS IN PLACE.
[2020-09-07 06:53] LABS: HEMATOCRIT 36.9 % (39.0-50.0); IMMATURE GRANULOCYTES 0.4 % (0.0-5.0); MEAN CELL VOLUME 96.6 fL CALC (80.0-100.0); MEAN CORPUSCULAR HGB 31.4 pG CALC (26.0-32.0); MEAN CORPUSCULAR HGB CONC 32.5 g/dL CAL (32.0-36.0); NEUT# 4.52 thou/uL (1.82-7.42); RED BLOOD COUNT 3.82 mill/uL (4.70-6.10); RED CELL DISTRI WIDTH 14.1 % (11.5-15.5)
[2020-09-07 07:11] LABS: ALBUMIN 3.6 g/dL (3.2-5.0); ALKALINE PHOSPHATASE 44 u/l (38-126); ANION GAP 14 (6-22 (CALC)); BUN 14 mg/dL (8-23); BUN/CREATININE RATIO 17 (12-20 (CALC)); CARBON DIOXIDE 24 mmol/l (22-30); CHLORIDE 102 mmol/l (95-108); CREATININE 0.9 mg/dL (0.7-1.3); GFR > 60 ML/MIN (>=60 (CALC)); GFR FOR AFR.AMER. > 60 ML/MIN (>=60 (CALC)); POTASSIUM 3.6 mmol/l (3.5-5.1); SGOT/AST 20 u/l (19-48); SODIUM 136 mmol/l (137-146); TOTAL PROTEIN 6.2 g/dL (6.3-8.2)
[2020-09-07 07:20] LABS: BILIRUBIN, TOTAL 1.3 mg/dL (0.0-1.4)
[2020-09-07 08:06] VITALS: BP 112/72
--- NOTE | 2020-09-07 08:06 | NUR ---
RECEIVED REPORT FROM ANNITA CARMONA. PT RESTING IN SEMI FOWLERS POSITION UPON ENTERING ROOM. INTRODUCED SELF TO PT AND DISCUSSED POC. PT IS A/O X3. ASSESSMENT AND VITALS COMPLETED. BP 112/72, HR 116, O2 98% ON ROOM AIR. 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 HEART RHYTHM IS NORMAL WITH TELE IN PLACE, AFIB 114 PER ER MONITORING. BOWEL SOUNDS ARE ACTIVE IN ALL QUADRANTS, ALST REPORTED BM 09/05/2020. RADIAL PULSES STRONG. PEDAL WEAK.DISCOLORATION NOTED TO BLE. #20G IN RAC FLUSHED, SITE APPEARS HEALTHY AND PATENT. PT DENIES ANY PAIN AT THIS TIME. ALL SAFETY PRECAUTIONS ARE IN PLACE WITH CALL LIGHT IN REACH. WILL CONTINUE TO MONITOR
[2020-09-07 11:00] VITALS: BP 102/72
--- NOTE | 2020-09-07 11:18 | NUR ---
PT REVIEWED PATIENT'S CHART AND PATIENT WILL BENEFIT FROM PHYSICAL THERAPY TREATMENT. ORDER FOR PT EVAL AND TREAT.
--- NOTE | 2020-09-07 12:15 | NUR ---
DR APODACA AT BEDSIDE DISCUSSING POC WITH PT
--- NOTE | 2020-09-07 13:33 | NUR ---
PT EDUCATED ON DISCHARGE INSTRUCTIONS. PT VERBAILZED UNDERSTANDING. IV REMOVED WITH CATHATER STILL INTACT. PT TOELRATED WELL. TELE MONITORING REMOVED. ER NOTIFIED. WAITING FOR TRANSPORTATION. ALL SFAETY PRECAUTIONS ARE IN PLACE WIHT CVALL LIGHT IN REACH. WILL CONTINUE TO MONITOR
--- NOTE | 2020-09-07 13:44 | NUR ---
Discharge instructions given. Patient verbalizes understanding of same. Discharged in stable condition via Wheelchair to Home with staff. All belongings sent with pt. PT DISCHARGED HOME VIA WHEELCHAIR IN STABLE CONDITION ACCOMPAINED BY BRANCHER WITH ALL BELONINGS AND DISCHARGE PAPERWORK
== END 2020-09-07 13:44 | disposition home or self-care (01) | DRG 313 ==
LOC: ED 06:41 → ED-I 09:00 → ED 09:14 → MS2 09:15 → ED-I 09:15 → MS2 13:17
PROVIDERS: Family Medicine; Nurse Practitioner Family; ADMIT Internal Medicine; ATTEND Internal Medicine
DX: R07.9 Chest pain, unspecified (principal); I11.0 Hypertensive heart disease with heart failure; I50.9 Heart failure, unspecified; I25.10 Atherosclerotic heart disease of native coronary artery without angina pectoris; I48.91 Unspecified atrial fibrillation; F10.20 Alcohol dependence, uncomplicated; I73.9 Peripheral vascular disease, unspecified; K21.9 Gastro-esophageal reflux disease without esophagitis; G62.9 Polyneuropathy, unspecified; Z86.73 Personal history of transient ischemic attack (TIA), and cerebral infarction without residual deficits; Z87.891 Personal history of nicotine dependence; Z20.828 Contact with and (suspected) exposure to other viral communicable diseases
CPT/HCPCS: J1650

== ENCOUNTER 2020-11-22 21:54 | Observation (INO) | payer OTHER ==
[~2020-11-22] VITALS: Ht 185.4 cm; Wt 116.1 kg
[~2020-11-22 21:54] MED LIST changes: +AMMONIUM LAC122 EX; +ASPIRIN81 MG PO; +ATORVASTATIN CA80 MG PO; +DOCUPRENE100 MG PO; +NEURONTIN600 MG PO; +SM ALLERGY50 MCG/ACT
[2020-11-22 22:22] LABS: GFR > 60 ML/MIN (>=60 (CALC)); GFR FOR AFR.AMER. > 60 ML/MIN (>=60 (CALC)); HEMATOCRIT 40.8 % (39.0-50.0); HEMOGLOBIN 13.1 g/dl (14.0-18.0); IMMATURE GRANULOCYTES 0.3 % (0.0-5.0); MEAN CELL VOLUME 95.3 fL CALC (80.0-100.0); MEAN CORPUSCULAR HGB 30.6 pG CALC (26.0-32.0); MEAN CORPUSCULAR HGB CONC 32.1 g/dL CAL (32.0-36.0); NEUT# 3.25 thou/uL (1.82-7.42); RED BLOOD COUNT 4.28 mill/uL (4.70-6.10); RED CELL DISTRI WIDTH 15.2 % (11.5-15.5)
[2020-11-22 22:38] LABS: ALKALINE PHOSPHATASE 62 u/l (38-126); ANION GAP 16 (6-22 (CALC)); BUN 16 mg/dL (8-23); BUN/CREATININE RATIO 18 (12-20 (CALC)); CARBON DIOXIDE 25 mmol/l (22-30); CHLORIDE 104 mmol/l (95-108); CREATININE 0.9 mg/dL (0.7-1.3); ETHYL ALCOHOL 270 mg/dl (0-30); GFR > 60 ML/MIN (>=60 (CALC)); GFR FOR AFR.AMER. > 60 ML/MIN (>=60 (CALC)); LIPASE 183 u/l (23-300); SODIUM 141 mmol/l (137-146)
[2020-11-22 22:39] LABS: ALBUMIN 4.4 g/dL (3.2-5.0); BILIRUBIN, TOTAL 0.4 mg/dL (0.0-1.4); SGOT/AST 46 u/l (19-48); TOTAL PROTEIN 7.5 g/dL (6.3-8.2)
[2020-11-22 23:08] LABS: TSH, 3RD GENERATION 1.01 uIU/mL (0.47 - 4.68)
[2020-11-23 01:24] VITALS: BP 140/90
[2020-11-23 02:37] LABS: ACT PARTIAL THROMBO TIME 29.1 SECONDS (20.0-32.5); INTERNATIONAL NORMALIZED RATIO 1.3 RATIO (0.7-1.3); PROTHROMBIN TIME 12.9 SECONDS (9.0-12.5)
[2020-11-23 03:49] LABS: HEMATOCRIT 39.7 % (39.0-50.0); HEMOGLOBIN 12.7 g/dl (14.0-18.0); IMMATURE GRANULOCYTES 0.3 % (0.0-5.0); MEAN CELL VOLUME 94.1 fL CALC (80.0-100.0); MEAN CORPUSCULAR HGB 30.1 pG CALC (26.0-32.0); NEUT# 2.54 thou/uL (1.82-7.42); RED BLOOD COUNT 4.22 mill/uL (4.70-6.10); RED CELL DISTRI WIDTH 15.1 % (11.5-15.5)
[2020-11-23 04:00] VITALS: BP 112/71
[2020-11-23 04:24] LABS: ALBUMIN 4.1 g/dL (3.2-5.0); ALKALINE PHOSPHATASE 58 u/l (38-126); ANION GAP 14 (6-22 (CALC)); BILIRUBIN, TOTAL 0.4 mg/dL (0.0-1.4); BUN 13 mg/dL (8-23); BUN/CREATININE RATIO 16 (12-20 (CALC)); CARBON DIOXIDE 28 mmol/l (22-30); CHLORIDE 104 mmol/l (95-108); CREATININE 0.8 mg/dL (0.7-1.3); GFR > 60 ML/MIN (>=60 (CALC)); GFR FOR AFR.AMER. > 60 ML/MIN (>=60 (CALC)); POTASSIUM 3.8 mmol/l (3.5-5.1); SGOT/AST 39 u/l (19-48); SODIUM 141 mmol/l (137-146); TOTAL PROTEIN 6.9 g/dL (6.3-8.2)
[2020-11-23 09:02] VITALS: BP 130/71
[2020-11-23 15:00] VITALS: BP 136/80
[2020-11-23] MEDS ORDERED: ZESTRIL5 M1 PO (15:18)
[2020-11-23] MEDS ORDERED: LASIX 40 MG TAB40 MG PO (15:20)
[2020-11-23] MEDS ORDERED: LASIX20 MG PO (15:23)
[2020-11-23] MEDS ORDERED: METOPROLOL SUC200 MG PO (15:28)
[2020-11-23] MEDS ORDERED: ASPIRIN81 MG PO (15:30)
[2020-11-23] MEDS ORDERED: LIPITOR40 M1 PO (15:31)
[2020-11-23] MEDS ORDERED: ALLERGY RE50 MCG/ACT (15:33)
[2020-11-23] MEDS ORDERED: MULTI VIT PO (15:34)
[2020-11-23] MEDS ORDERED: GABAPENTIN100 MG PO (15:34)
[2020-11-23] MEDS ORDERED: PROTONIX40 M2 PO (15:35)
[2020-11-23] MEDS ORDERED: MAG OXIDE400 MG PO (15:35)
[2020-11-23] MEDS ORDERED: TUMERIC PO (15:37)
== END 2020-11-23 18:00 | disposition home health service (06) | DRG 69 ==
LOC: ED 21:54 → ED-I 11-23 00:05 → ED 11-23 00:24 → MS2 11-23 00:25
PROVIDERS: ADMIT Internal Medicine; ATTEND Internal Medicine
DX: G45.9 Transient cerebral ischemic attack, unspecified (principal); G93.41 Metabolic encephalopathy; G93.89 Other specified disorders of brain; F10.229 Alcohol dependence with intoxication, unspecified; I48.20 Chronic atrial fibrillation, unspecified; R06.02 Shortness of breath; R07.9 Chest pain, unspecified; I11.0 Hypertensive heart disease with heart failure; I50.9 Heart failure, unspecified; G62.9 Polyneuropathy, unspecified; I73.9 Peripheral vascular disease, unspecified; Y90.8 Blood alcohol level of 240 mg/100 ml or more; Z86.73 Personal history of transient ischemic attack (TIA), and cerebral infarction without residual deficits; Z87.891 Personal history of nicotine dependence; Z79.01 Long term (current) use of anticoagulants; Z20.822 Contact with and (suspected) exposure to COVID-19

== ENCOUNTER 2020-11-29 13:06 | Observation (INO) | payer OTHER ==
[~2020-11-29] VITALS: Ht 185.4 cm; Wt 118.5 kg
[~2020-11-29 13:06] MED LIST changes: +ALLERGY NA50 MCG/ACT NAB; +ASPIRIN ENTERIC81 MG PO; +GABAPENTIN600 MG PO; +LASIX20 MG PO; +LIPITOR80 M1 PO; +MAG OXIDE400 MG PO; +MULTI VIT PO; +PROTONIX40 M2 PO; +TUMERIC PO; +ZESTRIL5 M1 PO
[2020-11-29 13:50] LABS: HEMATOCRIT 39.2 % (39.0-50.0); HEMOGLOBIN 12.8 g/dl (14.0-18.0); MEAN CELL VOLUME 94.2 fL CALC (80.0-100.0); MEAN CORPUSCULAR HGB 30.8 pG CALC (26.0-32.0); MEAN CORPUSCULAR HGB CONC 32.7 g/dL CAL (32.0-36.0); NEUT# 4.77 thou/uL (1.82-7.42); RED BLOOD COUNT 4.16 mill/uL (4.70-6.10); RED CELL DISTRI WIDTH 15.7 % (11.5-15.5)
[2020-11-29 14:02] LABS: ALBUMIN 4.6 g/dL (3.2-5.0); ALKALINE PHOSPHATASE 69 u/l (38-126); ANION GAP 15 (6-22 (CALC)); BUN 12 mg/dL (8-23); BUN/CREATININE RATIO 15 (12-20 (CALC)); CARBON DIOXIDE 31 mmol/l (22-30); CHLORIDE 101 mmol/l (95-108); CREATININE 0.8 mg/dL (0.7-1.3); GFR > 60 ML/MIN (>=60 (CALC)); GFR FOR AFR.AMER. > 60 ML/MIN (>=60 (CALC)); LIPASE 106 u/l (23-300); POTASSIUM 3.6 mmol/l (3.5-5.1); SGOT/AST 47 u/l (19-48); SODIUM 142 mmol/l (137-146)
[2020-11-29 14:03] LABS: BILIRUBIN, TOTAL 0.6 mg/dL (0.0-1.4)
[2020-11-29 20:15] VITALS: BP 114/88
[2020-11-30] VITALS: BP 130/84
[2020-11-30 03:59] VITALS: BP 136/94
[2020-11-30 07:08] LABS: CHOLESTEROL HDL RATIO 3.7 (<4.4 (CALC)); MAGNESIUM 1.3 mg/dL (1.6-2.3)
[2020-11-30 08:00] LABS: URINE BILIRUBIN - DIPSTICK NEGATIVE (NEGATIVE); URINE BLOOD DIPSTICK NEGATIVE (NEGATIVE); URINE CLARITY CLEAR; URINE COLOR YELLOW; URINE GLUCOSE - DIPSTICK NEGATIVE (NEGATIVE); URINE KETONE NEGATIVE (NEGATIVE); URINE LEUK ESTERASE NEGATIVE (Negative); URINE NITRITE - DIPSTICK NEGATIVE (Negative); URINE PROTEIN - DIPSTICK NEGATIVE (NEG-TRACE); URINE UROBILINOGEN - DIPSTICK 0.2 E.U./dL (0.2)
[2020-11-30 08:31] VITALS: BP 143/108
[2020-11-30] MEDS ORDERED: DIGITEK0.125 M1 PO (08:56)
[2020-11-30] MEDS ORDERED: SILDENAFIL100 MG PO (09:05)
[2020-11-30 10:09] VITALS: BP 148/96
[2020-11-30] MEDS ORDERED: LIBRIUM25 M1 PO (10:30)
[2020-11-30 10:50] VITALS: BP 132/87
== END 2020-11-30 15:38 | disposition home or self-care (01) | DRG 313 ==
LOC: ED 13:06 → ED-I 16:14 → ED 16:32 → MS2 16:33
PROVIDERS: ADMIT Internal Medicine; ATTEND Internal Medicine
DX: R07.89 Other chest pain (principal); F10.229 Alcohol dependence with intoxication, unspecified; R06.02 Shortness of breath; R53.1 Weakness; I11.0 Hypertensive heart disease with heart failure; I50.9 Heart failure, unspecified; I48.91 Unspecified atrial fibrillation; G62.9 Polyneuropathy, unspecified; I73.9 Peripheral vascular disease, unspecified; Y90.8 Blood alcohol level of 240 mg/100 ml or more; Z86.73 Personal history of transient ischemic attack (TIA), and cerebral infarction without residual deficits; Z79.01 Long term (current) use of anticoagulants; Z20.822 Contact with and (suspected) exposure to COVID-19
CPT/HCPCS: J3475; Q9967

== ENCOUNTER 2020-12-28 03:12 | Observation (INO) | payer OTHER ==
[~2020-12-28] VITALS: Ht 185.4 cm; Wt 110.0 kg
[~2020-12-28 03:12] MED LIST changes: +DIGITEK0.125 M1 PO; +SILDENAFIL100 MG PO
--- NOTE | 2020-12-28 03:12 | NUR ---
PT TO ROOM # 13 VIA EMS STRETCHER
--- NOTE | 2020-12-28 03:35 | NUR ---
PT TO RADIOLOGY VIA STRETCHER IN STABLE CONDITION
--- NOTE | 2020-12-28 04:24 | NUR ---
PT RETURNS FROM RADIOLOGY IN STABLE CONDITION. PT PLACED ON FIBERGLASS LUGGAGE MOLDER. DISCUSSED WAIT TIME FOR RESULTS. VEBRALIZED UNDERSTANDING. DENEIS ANY FURTHER NEEDS. CALL LIGHT WITHIN REACH.
[2020-12-28 04:40] LABS: HEMATOCRIT 42.6 % (39.0-50.0); HEMOGLOBIN 13.9 g/dl (14.0-18.0); IMMATURE GRANULOCYTES 0.4 % (0.0-5.0); MEAN CELL VOLUME 93.2 fL CALC (80.0-100.0); MEAN CORPUSCULAR HGB 30.4 pG CALC (26.0-32.0); MEAN CORPUSCULAR HGB CONC 32.6 g/dL CAL (32.0-36.0); NEUT# 6.96 thou/uL (1.82-7.42); RED BLOOD COUNT 4.57 mill/uL (4.70-6.10); RED CELL DISTRI WIDTH 15.3 % (11.5-15.5)
[2020-12-28 04:56] LABS: INTERNATIONAL NORMALIZED RATIO 1.3 RATIO (0.7-1.3); PROTHROMBIN TIME 12.7 SECONDS (9.0-12.5)
[2020-12-28 04:59] LABS: ALBUMIN 5.2 g/dL (3.2-5.0); ALKALINE PHOSPHATASE 84 u/l (38-126); ANION GAP 20 (6-22 (CALC)); BUN 16 mg/dL (8-23); BUN/CREATININE RATIO 17 (12-20 (CALC)); CARBON DIOXIDE 28 mmol/l (22-30); CHLORIDE 96 mmol/l (95-108); CREATININE 0.9 mg/dL (0.7-1.3); ETHYL ALCOHOL 167 mg/dl (0-30); GFR > 60 ML/MIN (>=60 (CALC)); GFR FOR AFR.AMER. > 60 ML/MIN (>=60 (CALC)); POTASSIUM 3.7 mmol/l (3.5-5.1); SGOT/AST 45 u/l (19-48); SODIUM 140 mmol/l (137-146); TOTAL PROTEIN 8.4 g/dL (6.3-8.2)
--- NOTE | 2020-12-28 05:00 | NUR ---
PT UNABLE TO PROVIDE URINE SAMPLE AT THIS TIME.
[2020-12-28] MEDS ORDERED: MAGNESIUM OXID400 M2 PO (05:01)
[2020-12-28 05:09] LABS: BILIRUBIN, TOTAL 0.9 mg/dL (0.0-1.4)
[2020-12-28 05:10] LABS: MYOGLOBIN 57 ng/mL (0 - 121)
--- NOTE | 2020-12-28 05:15 | NUR ---
PT REQUESTING PAIN MEDICATION, DR HADDAD NOTIFED AND ORDER RECEIVED. PT MEDICATED PER DEC ORDER. TOLERATED ADMINISTRATION WELL. ADVISED OF WAIT TIME FOR PLAN OF CARE, VERBALIZED UNDERSTANDING. DENIES ANY FURTHER NEEDS.
[2020-12-28] MEDS ORDERED: TRAZODONE50 MG PO (05:40)
[2020-12-28] MEDS ORDERED: LANOXIN0.125 MG PO (05:40)
--- NOTE | 2020-12-28 05:44 | NUR ---
PT RESTING ON STRETCHER WITH EYES OPEN. PT REPORTS HE TAKES DIGOXIN AND TRAZADONE BUT UNABLE TO RECALL DOSAGE FOR MEDICATIONS. PT IS AOX3. RESP EVEN AND UNLABORED. SKIN WARM AND DRY. PERSTEPHANIE YANG. BRUISING NOTED TO RIGHT SIDE OF FORHEAD. VERABLIZES NO CDOMPLAINTS AT THIS TIME. DATAPOWER DEVELOPER IN PLACE. CALL LIGHT WITHIN REACH.
--- NOTE | 2020-12-28 06:00 | NUR ---
REPORT CALLED TO SYED ARIZA ON [facility]
--- NOTE | 2020-12-28 06:10 | NUR ---
Admission Note Report Given to: MAGGIE RN Transported by: X Wheelchair Stretcher Transported with: X Nurse Transporter X Patent IV O2 Sales Porter Location: ICU X [facility] PT TRANSPORTED TO [facility] VIA TO ROOM # 280 IN STABLE CONDITION.
[2020-12-28 06:20] VITALS: BP 121/62
[2020-12-28 07:30] VITALS: BP 124/84
--- NOTE | 2020-12-28 07:30 | NUR ---
PT WAS ADMITTED TO ROOM 280. ALERT AND ORIENTED X 3 AND ABLE TO VERBALIZE NEEDS. CALM AND COOPERATVE AND ABLE TO MAKE NEEDS. PT HAS A REDDENED AREA TO RIGHT FOREHEAD AREA. CALM AND COOPERATIVE. CALL LIGHT WITHIN REACH. WILL CONTINUE TO OBSERVE
--- NOTE | 2020-12-28 07:57 | NUR ---
Patient is screened for PT consult and he may benefit if medical agrees
--- NOTE | 2020-12-28 08:30 | NUR ---
PT RESTING IN THE BED AXOX3, DENIES PAIN OR HEADACH AT THIS TIME. IV FLUIDS UP. C/O SLIGHT NAUSEA. REPOSITIONED FOR COMFORT, SIDE RAILS UP CALL LIGHT IN REACH BED LOCKED IN LOW POSITION, ALL SAFTY MEASURES IN PLACE. WILL CONTINUE TO MONIOTR THE PATIENT.
--- NOTE | 2020-12-28 10:16 | NUR ---
Pt screened by [facility] recommends bedside evaluation at this time if in agreement with physician.
[2020-12-28 10:57] VITALS: BP 134/77
--- NOTE | 2020-12-28 11:22 | NUR ---
PT REFUSED TEDS, STATES " THEY GAVE ME BLOOD CLOTS " .
--- NOTE | 2020-12-28 12:33 | NUR ---
PT RESTING COMFORTABLE IN THE BED. IV INFUSING. ENCOURAGED TO EAT LUNCH. REPOSITIOEND FOR COMFORT, SIDE RAILS UP CALL LIGHT IN REACH BED LOCKED IN LOW POSITION, ALL SAFTY MEASURES IN PLACE. WILL CONTINUE TO MONIOTR THE PATIENT.
[2020-12-28 14:55] VITALS: BP 120/74
--- NOTE | 2020-12-28 15:19 | NUR ---
PT HAD A LARGE SOFT DARK STOOL. BACK TO BED WITH ASST. REPOSITIONED FOR COMFORT, SIDE RAILS UP CALL LIGHT IN REACH BED LOCKED IN LOW POSITION, WILL CONTINUE TO MONIOTR THE PATIENT.
--- NOTE | 2020-12-28 17:16 | NUR ---
PT USED CALL LIGHT FOR ASSISTANCE TO BATHROOM; PT SLOW TO MOVE TO SITTING POSITION ON EDGE OF BED DUE TO NAUSEA AFTER EATING DINNER; SKIN IS SLIGHTLY MOIST; SIGNIFICANT TREMORS TO HANDS. C/O PAIN ONLY TO LEFT THUMB; DENIES HEADACHE. DENIES HALLUCINATIONS, BUT REPORTS "WHEN MY EYES ARE CLOSED EVERYTHING LOOKS LIKE BROWN CARPET." ALSO REPORTS RINGING IN HIS EARS THAT IS NOT NEW. XARELTO AND DIGOXIN GIVEN AT THIS TIME. AMBULATED TO BATHROOM WITH SLOW STEADY GAIT.
--- NOTE | 2020-12-28 18:19 | NUR ---
UP TO BATHROOM FOR BOWEL MOVEMENT. URINE SPECIMEN OBTAINED AND SENT TO LAB.
[2020-12-28 18:38] LABS: URINE BILIRUBIN - DIPSTICK NEGATIVE (NEGATIVE); URINE BLOOD DIPSTICK NEGATIVE (NEGATIVE); URINE COLOR YELLOW; URINE GLUCOSE - DIPSTICK NEGATIVE (NEGATIVE); URINE KETONE TRACE mg/dL (NEGATIVE); URINE LEUK ESTERASE NEGATIVE (NEGATIVE); URINE PROTEIN - DIPSTICK 100 mg/dL (NEG-TRACE); URINE SPECIFIC GRAVITY 1.025; URINE UROBILINOGEN - DIPSTICK 0.2 E.U./dL (0.2)
[2020-12-28 18:39] LABS: URINE NITRITE - DIPSTICK NEGATIVE (Negative)
[2020-12-28 18:48] LABS: URINE RBC 0-2 RBC/hpf (0-5); URINE WBC 0-2 WBC/hpf (0-5)
[2020-12-28 19:00] VITALS: BP 139/90
--- NOTE | 2020-12-28 19:29 | NUR ---
PT IN BED WITH EYES OPEN AND ABLE TO MAKE NEEDS KNOWN. RESPIRATION EVEN AND NON LABORED. CLM AND COOPERATIVE. CALLED AND REQUESTING UPDATE AND STATES SHE DOES NOT WANT PT BACK AT HER HOME. MESSAGE WAS LEFT FOR SOCIAL SERVICE TO ADDRESS IN AM. CALL LIGHT WITHIN REACH AND BED IN LOWEST POSITION. WILL CONTINUE TO OBSERVE
[2020-12-29] VITALS: BP 142/85
--- NOTE | 2020-12-29 02:38 | NUR ---
PT IN BED WITH EYES CLOSED. NO S/S OF DISTRESS NOTED. ATIVAN GIVEN FOR ANXIETY AND RESTLESSNESS AND EFFECTIVE. COMPLAINED OF HEADCHE AND SAMRA PAIN AND WAS GIVEN TRAMADOL PO AND TOLERATED WELL. ALSO COMPLAINED OF NAUSEA AND ZOFRAN GIVEN AND TOLERATED WELL. CALL LIGHT WITHIN REACH. WILL CONTINUE TO OBSERVE.
[2020-12-29 04:00] VITALS: BP 126/78
[2020-12-29 05:22] LABS: HEMATOCRIT 40.8 % (39.0-50.0); HEMOGLOBIN 13.2 g/dl (14.0-18.0); MEAN CELL VOLUME 93.4 fL CALC (80.0-100.0); MEAN CORPUSCULAR HGB 30.2 pG CALC (26.0-32.0); MEAN CORPUSCULAR HGB CONC 32.4 g/dL CAL (32.0-36.0); RED BLOOD COUNT 4.37 mill/uL (4.70-6.10); RED CELL DISTRI WIDTH 15.3 % (11.5-15.5)
[2020-12-29 05:41] LABS: ANION GAP 11 (6-22 (CALC)); BUN 20 mg/dL (8-23); BUN/CREATININE RATIO 21 (12-20 (CALC)); CARBON DIOXIDE 32 mmol/l (22-30); CHLORIDE 93 mmol/l (95-108); CREATININE 0.9 mg/dL (0.7-1.3); GFR > 60 ML/MIN (>=60 (CALC)); GFR FOR AFR.AMER. > 60 ML/MIN (>=60 (CALC)); MAGNESIUM 1.8 mg/dL (1.6-2.3); POTASSIUM 3.2 mmol/l (3.5-5.1); SODIUM 133 mmol/l (137-146)
--- NOTE | 2020-12-29 06:22 | NUR ---
PT IN BED WITH EYES OPEN WITH NO S/S OF DISTRESS/DISCOMFORT. RESPIRATION ARE EVEN AND NON LABORED. UP TO TOILET WIH STANDBY ASSIST. CIWA COMPLETED AND SCORE OF 3. CONTINUES TO HAVE NORMAL SALINE RUNNING AT 20ML/HR AND TOLERTING WELL.
--- NOTE | 2020-12-29 07:10 | NUR ---
PATIENT RESTING IN BED AT THIS TIME. PATIENT ALERT AND ORIENTED X 3. PATIENT DENIES ANY NEEDS AT THIS TIME. MODERATE TREMORS NOTED AND PATIENT STATED HE HAS HAD THIS ISSUE PRIOR TO ADMISSION. PATIENT EXHIBITS NO SWEATING OR AUDIO OR TACTILE DEFICITS AND SCORED A 4 ON THE CWIA SCALE AT THIS TIME. PATIENT DOES HAVE AN ABRAISON NOTED ON RIGHT FOREHEAD WHICH IS DRY. PATIENT NEURO CHECKS ARE NEGATIVE AND GRASPS ARE STRONG. PATIENTS SIDERAILS ARE UP X 2 CALL LIGHT AND PERSONAL ITEMS ARE WITHIN REACH TELE MONITOR ON AND BEING MONITORED BY ED.
[2020-12-29 07:15] VITALS: BP 152/82
[2020-12-29] MEDS ORDERED: LIBRIUM25 M1 PO (08:41)
[2020-12-29 09:10] VITALS: BP 152/82
--- NOTE | 2020-12-29 10:41 | NUR ---
PATIENT D/C AT THIS TIME. PATIENT VERBALIZES UNDERSTANDING OF D/C INSTRUCTIONS AT THIS TIME. PATIENT TELE REMOVED AND ED NOTIFIED. IV REMOVED AND CATH IN TNTACT.
--- NOTE | 2020-12-29 11:29 | NUR ---
Discharge instructions given. Patient verbalizes understanding of same. Discharged in stable condition via Wheelchair to Home with *Other. All belongings sent with pt.
== END 2020-12-29 11:30 | disposition home health service (06) | DRG 605 ==
LOC: ED 03:12 → ED-I 05:06 → ED 05:26 → MS2 05:27
PROVIDERS: Emergency Medicine; Nurse Practitioner; ADMIT Internal Medicine; ATTEND Internal Medicine
DX: S00.83XA Contusion of other part of head, initial encounter (principal); F10.229 Alcohol dependence with intoxication, unspecified; I11.0 Hypertensive heart disease with heart failure; I50.9 Heart failure, unspecified; I48.91 Unspecified atrial fibrillation; I25.10 Atherosclerotic heart disease of native coronary artery without angina pectoris; G62.9 Polyneuropathy, unspecified; I73.9 Peripheral vascular disease, unspecified; F17.220 Nicotine dependence, chewing tobacco, uncomplicated; W19.XXXA Unspecified fall, initial encounter; Y92.009 Unspecified place in unspecified non-institutional (private) residence as the place of occurrence of the external cause; Y90.6 Blood alcohol level of 120-199 mg/100 ml; Z79.01 Long term (current) use of anticoagulants; Z86.73 Personal history of transient ischemic attack (TIA), and cerebral infarction without residual deficits; Z20.822 Contact with and (suspected) exposure to COVID-19
CPT/HCPCS: J2060

== ENCOUNTER 2021-01-21 14:34 | Observation (INO) | payer OTHER ==
[~2021-01-21 14:34] MED LIST changes: +LANOXIN0.125 MG PO; +MAGNESIUM OXID400 M2 PO; +TRAZODONE50 MG PO
[2021-01-21 15:15] LABS: HEMATOCRIT 44.2 % (39.0-50.0); HEMOGLOBIN 14.5 g/dl (14.0-18.0); IMMATURE GRANULOCYTES 0.4 % (0.0-5.0); MEAN CELL VOLUME 93.4 fL CALC (80.0-100.0); MEAN CORPUSCULAR HGB 30.7 pG CALC (26.0-32.0); MEAN CORPUSCULAR HGB CONC 32.8 g/dL CAL (32.0-36.0); NEUT# 4.37 thou/uL (1.82-7.42); RED BLOOD COUNT 4.73 mill/uL (4.70-6.10); RED CELL DISTRI WIDTH 14.6 % (11.5-15.5)
[2021-01-21 15:29] LABS: ALBUMIN 5.1 g/dL (3.2-5.0); ALKALINE PHOSPHATASE 66 u/l (38-126); BILIRUBIN, TOTAL 0.7 mg/dL (0.0-1.4); BUN 16 mg/dL (8-23); BUN/CREATININE RATIO 18 (12-20 (CALC)); CARBON DIOXIDE 30 mmol/l (22-30); CHLORIDE 98 mmol/l (95-108); CREATININE 0.9 mg/dL (0.7-1.3); ETHYL ALCOHOL 259 mg/dl (0-30); GFR > 60 ML/MIN (>=60 (CALC)); GFR FOR AFR.AMER. > 60 ML/MIN (>=60 (CALC)); POTASSIUM 3.8 mmol/l (3.5-5.1); SGOT/AST 42 u/l (19-48); TOTAL PROTEIN 8.6 g/dL (6.3-8.2)
[2021-01-21 15:33] LABS: ANION GAP 19 (6-22 (CALC)); SODIUM 143 mmol/l (137-146)
[2021-01-22] VITALS (15 sets, daily range): BP systolic 128–168; BP diastolic 73–102
[2021-01-22] MEDS ORDERED: MULTI VIT PO (09:36)
== END 2021-01-22 21:22 | DRG 313 ==
LOC: ED 14:34 → ED-I 18:09 → ED 18:34 → ED-I 18:35 → ICU 01-22 05:36
PROVIDERS: Family Medicine; ADMIT Internal Medicine; ATTEND Internal Medicine
DX: R07.9 Chest pain, unspecified (principal); R45.851 Suicidal ideations; F32.9 Major depressive disorder, single episode, unspecified; F10.229 Alcohol dependence with intoxication, unspecified; I25.10 Atherosclerotic heart disease of native coronary artery without angina pectoris; I11.0 Hypertensive heart disease with heart failure; I50.9 Heart failure, unspecified; I48.91 Unspecified atrial fibrillation; E78.5 Hyperlipidemia, unspecified; R25.1 Tremor, unspecified; I73.9 Peripheral vascular disease, unspecified; G62.9 Polyneuropathy, unspecified; Z86.73 Personal history of transient ischemic attack (TIA), and cerebral infarction without residual deficits; Z20.822 Contact with and (suspected) exposure to COVID-19

== ENCOUNTER 2021-04-02 16:27 | Emergency (ER) | payer OTHER ==
[~2021-04-02] VITALS: Ht 185.4 cm; Wt 111.0 kg
[2021-04-02 17:24] LABS: HEMATOCRIT 43.7 % (39.0-50.0); HEMOGLOBIN 14.7 g/dl (14.0-18.0); IMMATURE GRANULOCYTES 0.4 % (0.0-5.0); MEAN CELL VOLUME 93.8 fL CALC (80.0-100.0); MEAN CORPUSCULAR HGB 31.5 pG CALC (26.0-32.0); MEAN CORPUSCULAR HGB CONC 33.6 g/dL CAL (32.0-36.0); NEUT# 3.17 thou/uL (1.82-7.42); RED BLOOD COUNT 4.66 mill/uL (4.70-6.10); RED CELL DISTRI WIDTH 13.3 % (11.5-15.5)
[2021-04-02 17:39] LABS: ALBUMIN 4.3 g/dL (3.2-5.0); ALKALINE PHOSPHATASE 60 u/l (38-126); ANION GAP 16 (6-22 (CALC)); BILIRUBIN, TOTAL 0.6 mg/dL (0.0-1.4); BUN 14 mg/dL (8-23); BUN/CREATININE RATIO 15 (12-20 (CALC)); CARBON DIOXIDE 29 mmol/l (22-30); CHLORIDE 97 mmol/l (95-108); GFR > 60 ML/MIN (>=60 (CALC)); GFR FOR AFR.AMER. > 60 ML/MIN (>=60 (CALC)); POTASSIUM 3.6 mmol/l (3.5-5.1); SGOT/AST 54 u/l (19-48); SODIUM 139 mmol/l (137-146); TOTAL PROTEIN 7.8 g/dL (6.3-8.2)
[2021-04-02 17:49] LABS: MYOGLOBIN 52 ng/mL (0 - 121)
[2021-04-02 20:17] VITALS: BP 115/77
== END 2021-04-02 20:25 | disposition home or self-care (01) | DRG 310 ==
LOC: ED 16:27
PROVIDERS: Emergency Medicine
DX: I48.91 Unspecified atrial fibrillation (principal); F10.129 Alcohol abuse with intoxication, unspecified; I11.0 Hypertensive heart disease with heart failure; I50.9 Heart failure, unspecified; E78.5 Hyperlipidemia, unspecified; I25.10 Atherosclerotic heart disease of native coronary artery without angina pectoris; G20 Parkinson's disease; G47.30 Sleep apnea, unspecified; Z86.73 Personal history of transient ischemic attack (TIA), and cerebral infarction without residual deficits
CPT/HCPCS: Q9967

== ENCOUNTER 2021-07-04 17:10 | Emergency (ER) | payer OTHER ==
[~2021-07-04] VITALS: Ht 185.4 cm; Wt 100.0 kg
[2021-07-04 17:48] VITALS: BP 112/67
[2021-07-04 18:12] LABS: HEMATOCRIT 40.5 % (39.0-50.0); HEMOGLOBIN 12.9 g/dl (14.0-18.0); IMMATURE GRANULOCYTES 0.1 % (0.0-5.0); MEAN CELL VOLUME 98.3 fL CALC (80.0-100.0); MEAN CORPUSCULAR HGB 31.3 pG CALC (26.0-32.0); MEAN CORPUSCULAR HGB CONC 31.9 g/dL CAL (32.0-36.0); NEUT# 7.78 thou/uL (1.82-7.42); RED BLOOD COUNT 4.12 mill/uL (4.70-6.10); RED CELL DISTRI WIDTH 12.6 % (11.5-15.5)
[2021-07-04 18:41] LABS: ALBUMIN 4.6 g/dL (3.2-5.0); ALKALINE PHOSPHATASE 60 u/l (38-126); ANION GAP 13 (6-22 (CALC)); BUN 24 mg/dL (8-23); BUN/CREATININE RATIO 22 (12-20 (CALC)); CARBON DIOXIDE 27 mmol/l (22-30); CHLORIDE 100 mmol/l (95-108); CREATININE 1.1 mg/dL (0.7-1.3); GFR > 60 ML/MIN (>=60 (CALC)); GFR FOR AFR.AMER. > 60 ML/MIN (>=60 (CALC)); POTASSIUM 4.1 mmol/l (3.5-5.1); SGOT/AST 29 u/l (19-48); SODIUM 136 mmol/l (137-146); TOTAL PROTEIN 7.5 g/dL (6.3-8.2)
[2021-07-04 18:43] LABS: BILIRUBIN, TOTAL 1.1 mg/dL (0.0-1.4)
== END 2021-07-04 19:38 | disposition home or self-care (01) | DRG 607 ==
LOC: ED 17:10
PROVIDERS: Physician Assistant Surgical
DX: L98.9 Disorder of the skin and subcutaneous tissue, unspecified (principal); I11.0 Hypertensive heart disease with heart failure; I50.9 Heart failure, unspecified; I48.91 Unspecified atrial fibrillation; Z86.73 Personal history of transient ischemic attack (TIA), and cerebral infarction without residual deficits

== ENCOUNTER 2021-07-24 11:35 | Emergency (ER) | payer OTHER, MEDICARE ==
[~2021-07-24] VITALS: Ht 185.4 cm; Wt 100.0 kg
[2021-07-24 12:10] LABS: HEMATOCRIT 41.2 % (39.0-50.0); HEMOGLOBIN 13.3 g/dl (14.0-18.0); IMMATURE GRANULOCYTES 0.4 % (0.0-5.0); MEAN CELL VOLUME 97.4 fL CALC (80.0-100.0); MEAN CORPUSCULAR HGB 31.4 pG CALC (26.0-32.0); MEAN CORPUSCULAR HGB CONC 32.3 g/dL CAL (32.0-36.0); NEUT# 3.76 thou/uL (1.82-7.42); RED BLOOD COUNT 4.23 mill/uL (4.70-6.10); RED CELL DISTRI WIDTH 13.1 % (11.5-15.5)
[2021-07-24 12:25] LABS: ALBUMIN 4.6 g/dL (3.2-5.0); ALKALINE PHOSPHATASE 63 u/l (38-126); ANION GAP 13 (6-22 (CALC)); BILIRUBIN, TOTAL 0.9 mg/dL (0.0-1.4); BUN 10 mg/dL (8-23); BUN/CREATININE RATIO 13 (12-20 (CALC)); CARBON DIOXIDE 28 mmol/l (22-30); CHLORIDE 102 mmol/l (95-108); CREATININE 0.8 mg/dL (0.7-1.3); GFR > 60 ML/MIN (>=60 (CALC)); GFR FOR AFR.AMER. > 60 ML/MIN (>=60 (CALC)); LIPASE 331 u/l (23-300); POTASSIUM 3.9 mmol/l (3.5-5.1); SGOT/AST 30 u/l (19-48); SODIUM 139 mmol/l (137-146); TOTAL PROTEIN 7.9 g/dL (6.3-8.2)
[2021-07-24 12:42] LABS: ACT PARTIAL THROMBO TIME 25.9 SECONDS (20.0-32.5); INTERNATIONAL NORMALIZED RATIO 1.1 RATIO (0.7-1.3); PROTHROMBIN TIME 11.7 SECONDS (9.0-12.5)
[2021-07-24] MEDS ORDERED: PRADAXA150 M1 (13:03)
[2021-07-24 15:26] VITALS: BP 108/59
== END 2021-07-24 15:05 | disposition short-term general hospital (02) | DRG 379 ==
LOC: ED 11:35
DX: K62.5 Hemorrhage of anus and rectum (principal); I48.91 Unspecified atrial fibrillation; I11.0 Hypertensive heart disease with heart failure; I50.9 Heart failure, unspecified; Z86.73 Personal history of transient ischemic attack (TIA), and cerebral infarction without residual deficits; Z79.02 Long term (current) use of antithrombotics/antiplatelets; Z98.890 Other specified postprocedural states; Z86.010 Personal history of colon polyps
CPT/HCPCS: Q9967

== ENCOUNTER 2023-04-05 21:18 | Emergency (ER) | payer OTHER, MEDICARE ==
[~2023-04-05] VITALS: Ht 185.4 cm; Wt 100.0 kg
[~2023-04-05 21:18] MED LIST changes: +PRADAXA150 M1
[2023-04-05 21:46] VITALS: BP 119/83
[2023-04-05 22:01] VITALS: BP 117/72
[2023-04-05 22:09] LABS: BASO% 0.6 % (0-3); EOS% 7.6 % (0-8); HEMATOCRIT 39.3 % (39.0-50.0); HEMOGLOBIN 12.9 g/dl (14.0-18.0); IMMATURE GRANULOCYTES 0.2 % (0.0-5.0); LYMPH% 23.3 % (15-41); MEAN CORPUSCULAR HGB 32.5 pG CALC (26.0-32.0); MEAN CORPUSCULAR HGB CONC 32.8 g/dL CAL (32.0-36.0); MONO% 8.3 % (2-13); NEUT# 3.17 thou/uL (1.82-7.42); RED BLOOD COUNT 3.97 mill/uL (4.70-6.10); RED CELL DISTRI WIDTH 14.3 % (11.5-15.5)
[2023-04-05 22:27] LABS: ALBUMIN 4.6 g/dL (3.2-5.0); ALKALINE PHOSPHATASE 65 u/l (38-126); ANION GAP 15 (6-22 (CALC)); BUN 16 mg/dL (8-23); BUN/CREATININE RATIO 18 (12-20 (CALC)); CARBON DIOXIDE 30 mmol/l (22-30); CHLORIDE 103 mmol/l (95-108); CREATININE 0.9 mg/dL (0.7-1.3); GFR FOR AFR.AMER. > 60 ML/MIN (>=60 (CALC)); GFR OTHER RACES > 60 ML/MIN (>=60 (CALC)); POTASSIUM 4.2 mmol/l (3.5-5.1); SODIUM 144 mmol/l (137-146); TOTAL PROTEIN 7.4 g/dL (6.3-8.2)
[2023-04-05 22:42] LABS: BILIRUBIN, TOTAL 0.3 mg/dL (0.2-1.3); SGOT/AST 58 u/l (19-48)
[2023-04-05 22:43] LABS: ETHYL ALCOHOL 323 mg/dl (0-30)
[2023-04-06 01:39] VITALS: BP 127/83
[2023-04-06 02:01] VITALS: BP 105/51
[2023-04-06 02:38] VITALS: BP 105/51
== END 2023-04-06 02:39 | disposition short-term general hospital (02) | DRG 87 ==
LOC: ED 21:18
PROVIDERS: Emergency Medicine
DX: S06.5X0A Traumatic subdural hemorrhage without loss of consciousness, initial encounter (principal); F10.10 Alcohol abuse, uncomplicated; I11.0 Hypertensive heart disease with heart failure; I50.9 Heart failure, unspecified; I48.91 Unspecified atrial fibrillation; G20 Parkinson's disease; Y90.8 Blood alcohol level of 240 mg/100 ml or more; W18.30XA Fall on same level, unspecified, initial encounter; Y92.009 Unspecified place in unspecified non-institutional (private) residence as the place of occurrence of the external cause; Z79.02 Long term (current) use of antithrombotics/antiplatelets; Z86.73 Personal history of transient ischemic attack (TIA), and cerebral infarction without residual deficits

== ENCOUNTER 2023-04-16 21:21 | Emergency (ER) | payer OTHER, MEDICARE ==
[~2023-04-16] VITALS: Ht 185.4 cm; Wt 97.7 kg
[2023-04-16 21:45] VITALS: BP 117/79
[2023-04-16 22:00] VITALS: BP 110/70
[2023-04-16 22:15] VITALS: BP 117/68
[2023-04-16 22:15] LABS: BASO% 0.6 % (0-3); EOS% 1.3 % (0-8); HEMATOCRIT 45.3 % (39.0-50.0); HEMOGLOBIN 14.8 g/dl (14.0-18.0); IMMATURE GRANULOCYTES 0.1 % (0.0-5.0); LYMPH% 16.9 % (15-41); MEAN CELL VOLUME 98.3 fL CALC (80.0-100.0); MEAN CORPUSCULAR HGB 32.1 pG CALC (26.0-32.0); MEAN CORPUSCULAR HGB CONC 32.7 g/dL CAL (32.0-36.0); MONO% 13.4 % (2-13); NEUT# 5.22 thou/uL (1.82-7.42); NEUT% 67.7 % (42-76); RED BLOOD COUNT 4.61 mill/uL (4.70-6.10)
[2023-04-16 22:25] LABS: ALBUMIN 4.6 g/dL (3.2-5.0); ALKALINE PHOSPHATASE 81 u/l (38-126); BUN 17 mg/dL (8-23); BUN/CREATININE RATIO 21 (12-20 (CALC)); CARBON DIOXIDE 29 mmol/l (22-30); CHLORIDE 98 mmol/l (95-108); CREATININE 0.8 mg/dL (0.7-1.3); GFR FOR AFR.AMER. > 60 ML/MIN (>=60 (CALC)); GFR OTHER RACES > 60 ML/MIN (>=60 (CALC)); POTASSIUM 4.3 mmol/l (3.5-5.1); SGOT/AST 28 u/l (19-48)
[2023-04-16 22:30] LABS: ANION GAP 13 (6-22 (CALC)); BILIRUBIN, TOTAL 0.8 mg/dL (0.2-1.3); SODIUM 136 mmol/l (137-146)
[2023-04-16 22:38] LABS: ACT PARTIAL THROMBO TIME 24.3 SECONDS (20.0-32.5); INTERNATIONAL NORMALIZED RATIO 1.1 RATIO (0.7-1.3); PROTHROMBIN TIME 10.9 SECONDS (9.0-12.5)
[2023-04-16] MEDS ORDERED: MEDDOSEPAK PO (23:07)
[2023-04-16 23:29] VITALS: BP 117/68
== END 2023-04-16 23:50 | disposition home or self-care (01) | DRG 103 ==
LOC: ED 21:21
PROVIDERS: Emergency Medicine
DX: R51.9 Headache, unspecified (principal); S06.5XAS Traumatic subdural hemorrhage with loss of consciousness status unknown, sequela; I48.91 Unspecified atrial fibrillation; E78.5 Hyperlipidemia, unspecified; I11.0 Hypertensive heart disease with heart failure; I50.9 Heart failure, unspecified; G20 Parkinson's disease; I73.9 Peripheral vascular disease, unspecified; W19.XXXS Unspecified fall, sequela